=== PATIENT | male | born 1985 | race Caucasian/White ===

== ENCOUNTER 2017-04-30 18:17 | Emergency (ER) | payer OTHER ==
[~2017-04-30] VITALS: Ht 190.5 cm; Wt 90.2 kg
[2017-04-30 18:19] VITALS: BP 144/89
[2017-04-30] MEDS ORDERED: LIDOCAINE 1%, 20ML ONE (18:27)
[2017-04-30] MEDS ORDERED: LIDOCAINE 1%, 20ML INFIL ONE (18:30)
== END 2017-04-30 19:28 | disposition home or self-care (01) ==
LOC: ED 19:22
DX: S61.412A Laceration without foreign body of left hand, initial encounter (principal); X58.XXXA Exposure to other specified factors, initial encounter; Y93.89 Activity, other specified; Y99.8 Other external cause status; Y92.89 Other specified places as the place of occurrence of the external cause
CPT/HCPCS: 12001

== ENCOUNTER 2017-05-09 19:31 | Emergency (ER) | payer OTHER ==
[~2017-05-09] VITALS: Ht 190.5 cm; Wt 89.9 kg
[2017-05-09 19:39] VITALS: BP 131/82
== END 2017-05-09 20:21 | disposition home or self-care (01) ==
LOC: ED 19:50
DX: S61.219D Laceration without foreign body of unspecified finger without damage to nail, subsequent encounter (principal); X58.XXXD Exposure to other specified factors, subsequent encounter
CPT/HCPCS: 99281